=== PATIENT | male | born 1960 | race Caucasian/White ===

== ENCOUNTER 2021-02-11 08:18 | Outpatient (CLI) | payer OTHER, SELFPAY ==
[2021-02-11 08:36] LABS: Basophils Absolute Auto 0.1 K/mm3 (0.0-0.1); Basophils Percent Auto 1.2 % (0.2-1.2); Eosinophils Absolute Auto 0.2 K/mm3 (0-0.3); Eosinophils Percent Auto 2.2 % (0-4.4); Hematocrit 47.4 % (42.0-52.0); Hemoglobin 16.3 g/dL (14.0-18.0); Immature Granulocyte Absolute 0.02 K/mm3 (0.00-0.031); Immature Granulocyte Percent A 0.3 % (0-0.5); Lymphocytes Absolute Auto 1.52 K/mm3 (0.9-3.2); Lymphocytes Percent Auto 21.9 % (18.3-44.2); Mean Corpuscular HGB Conc 34.4 g/dl (32-36); Mean Corpuscular Hemoglobin 34.3 pg (26-34); Mean Corpuscular Volume 99.8 fl (80-100); Mean Platelet Volume 10.8 fl (7.4-10.4); Monocytes Absolute Auto 0.9 K/mm3 (0.1-0.6); Monocytes Percent Auto 12.2 % (2.6-8.5); Neutrophils Absolute Auto 4.3 K/mm3 (1.3-6.7); Neutrophils Percent Auto 62.2 % (45.5-73.1); Platelet Count Result 85 k/mm3 (150-375); Red Blood Count 4.75 M/mm3 (4.6-6.20); Red Cell Distribution Width 11.3 % (11.5-14.5)
[2021-02-11 09:11] LABS: Alanine Aminotransferase 42 U/L (4-50); Albumin Level 4.4 g/dL (3.5-5.1); Alkaline Phosphatase 146 U/L (38-126); Anion Gap 11 mmol/L (8-16); Aspartate Amino Transferase 83 U/L (17-59); Bilirubin,Total 3.4 mg/dL (0.2-1.3); Blood Urea Nitrogen 6 mg/dL (9-20); Calcium 9.2 mg/dL (8.4-10.2); Carbon Dioxide 30 mmol/L (22-30); Chloride 95 mmol/L (98-107); Cholesterol 169 mg/dL (0-200); Estimated Glomerular Filt Rate > 60; Glucose 302 mg/dL (65-110); HDL Direct 35 mg/dL; Potassium 4.2 mmol/L (3.4-5.0); Sodium 136 mmol/L (137-145); Triglycerides 143 mg/dL (<150)
[2021-02-11 09:23] LABS: LDL Cholesterol Direct 95 mg/dL
[2021-02-11 09:43] LABS: Prostate Specific Antigen 0.2 ng/mL (< OR = 4.0); Total Triiodothyronine (T3) 1.21 NG/ML (0.97-1.69)
[2021-02-11 10:52] LABS: Free T4 Free Thyroxine 1.31 ng/mL (0.78-2.19); Vitamin D 25 Hydroxy 29.5 ng/mL
== END 2021-02-11 08:19 | disposition home or self-care (01) ==
PROVIDERS: PCP Family Medicine; Visit Provider Nurse Practitioner
DX: R10.10 Upper abdominal pain, unspecified (principal); R19.7 Diarrhea, unspecified; R03.0 Elevated blood-pressure reading, without diagnosis of hypertension; E55.9 Vitamin D deficiency, unspecified; Z12.5 Encounter for screening for malignant neoplasm of prostate
CPT/HCPCS: 36415; 80053; 80061; 82306; 84153; 84439; 84443; 84480; 85025; G0103

== ENCOUNTER 2021-03-14 08:16 | Outpatient (CLI) | payer OTHER, SELFPAY ==
[2021-03-14 11:02] LABS: Hepatitis B Surface Antigen Negative (Negative)
[2021-03-14 11:07] LABS: HAV RESULT Negative (Negative); Hepatitis B Core IgM Result Negative (Negative)
[2021-03-14 11:19] LABS: Hepatitis C Virus Antibody Negative (Negative)
== END 2021-03-14 08:17 | disposition home or self-care (01) ==
LOC: ANHLAB 08:18
PROVIDERS: PCP Family Medicine; Visit Provider Family Medicine
DX: R94.5 Abnormal results of liver function studies (principal)
CPT/HCPCS: 36415; 80074

== ENCOUNTER 2021-03-15 15:02 | Outpatient (CLI) | payer OTHER, SELFPAY ==
--- NOTE | ~2021-03-15 | CT_ITS ---
EXAMINATION: CT abdomen pelvis wo con DATE: 03/15/2021 15:23 INDICATION: Other ascites, hernia, groin pain TECHNIQUE: Computed tomography (CT) of the abdomen and pelvis was performed without intravenous contr ast. The dose-length product (DLP) was 516.26 mGy-cm. Automated exposure control and iterative recons truction technique were employed. COMPARISON: None FINDINGS: There is mild bronchial wall thickening with patchy airspace opacity of the visualized left lower lobe. The heart size is normal. The liver surface is nodular. The enlarged spleen measures 15. 5 cm. There is trace perihepatic ascites. The pancreas, gallbladder, and adrenal glands are normal. T he kidneys are unremarkable. No pathologically enlarged abdominal or pelvic lymph nodes are identifie d. There is no free intraperitoneal gas or evidence of bowel obstruction. There is calcified atherosc lerosis of the aorta and many of the other arteries. There is mild lumbar spondylosis. There are bila teral fat-containing inguinal hernias. IMPRESSION: 1. Cirrhosis with trace perihepatic ascites. 2. Splenomegaly, likely due to portal hypertension. 3. Minimal bronchial wall thickening and patchy airspace opacity of the left lower lobe, consistent w ith infection/inflammation. Reviewed, dictated and finalized at location [facility]. IMPRESSION: 1. Cirrhosis with trace perihepatic ascites. 2. Splenomegaly, likely due to portal hypertension. 3. Minimal bronchial wall thickening and patchy airspace opacity of the left lo wer lobe, consistent with infection/inflammation.
== END 2021-03-15 15:03 | disposition home or self-care (01) ==
LOC: ANHIMG 15:03
PROVIDERS: PCP Family Medicine; Visit Provider Surgery
DX: K40.20 Bilateral inguinal hernia, without obstruction or gangrene, not specified as recurrent (principal); K74.60 Unspecified cirrhosis of liver; R18.8 Other ascites
CPT/HCPCS: 74176

== ENCOUNTER 2021-03-22 11:06 | Outpatient (CLI) | payer OTHER, SELFPAY ==
[2021-03-22 11:28] LABS: Hematocrit 46.8 % (42.0-52.0); Hemoglobin 16.5 g/dL (14.0-18.0); Immature Platelet Fraction Pct 5.5 % (0.9-11.2); Mean Corpuscular HGB Conc 35.3 g/dl (32-36); Mean Corpuscular Hemoglobin 32.7 pg (26-34); Mean Corpuscular Volume 92.7 fl (80-100); Mean Platelet Volume 10.6 fl (7.4-10.4); Platelet Count Result 133 k/mm3 (150-375); Red Blood Count 5.05 M/mm3 (4.6-6.20); Red Cell Distribution Width 11.1 % (11.5-14.5); White Blood Count 7.6 K/mm3 (4.5-10.0)
[2021-03-22 12:41] LABS: Iron 87 ug/dL (49-181)
[2021-03-22 12:51] LABS: Percent Iron Saturation 17 % (20-50)
== END 2021-03-22 11:07 | disposition home or self-care (01) ==
LOC: ANHLAB 11:07
PROVIDERS: PCP Family Medicine; Visit Provider Internal Medicine Hematology & Oncology
DX: D69.59 Other secondary thrombocytopenia (principal)
CPT/HCPCS: 36415; 82607; 82728; 83540; 83550; 85027; 85055

== ENCOUNTER → 2021-07-13 00:05 | Outpatient (CLI) | payer OTHER, SELFPAY ==
[2021-07-13 16:46] LABS: SARS-CoV-2 RNA PCR Negative
== END ==
PROVIDERS: PCP Family Medicine; Visit Provider Internal Medicine Gastroenterology
DX: Z01.812 Encounter for preprocedural laboratory examination (principal); Z20.822 Contact with and (suspected) exposure to COVID-19
CPT/HCPCS: C9803; U0003; U0005

== ENCOUNTER 2021-07-17 01:35 | Day surgery (SDC) | payer OTHER, SELFPAY ==
[2021-07-08 12:57] VITALS: BMI 25.6
[2021-07-17 11:51] VITALS: BP 145/87; PULSE 84; RESP 18; TEMP 36.4; O2SAT 99
--- NOTE | 2021-07-17 12:03 | PM.HPGS ---
History of Present Illness History of Present Illness Consent: Risks, benefits, and alternatives have been discussed and questions answered. Patient agrees to proceed with procedure. Chief complaint: neoplasm screening Narrative: Adis Morales is a 61 year old male referred for colon cancer screening. This is his 1st colonoscopy. Review of Systems Review of Systems: All systems reviewed & are unremarkable except as noted in HPI and below PMFSH Past Medical History Medical History Diabetes Hypertension Surgical History Surgical History Hx of tonsillectomy Social History Social History Smoking packs per day: 1 Smoking cigarettes per day: 20.0 Years smoked: 35 Smoking pack-years: 35.00 Smoking status: Former smoker Tobacco type: cigarettes Alcohol intake: former Substance use: never Living arrangements: with family Spiritual care concerns: No Meds Home Medications and Allergies Home Medications Medication Instructions Recorded Confirmed Type cholecalciferol (vitamin D3) 25 mcg PO DAILY 07/08/21 07/08/21 History [Vitamin D3] duloxetine 60 mg PO HS 07/08/21 07/08/21 History gabapentin 300 mg PO TID 07/08/21 07/08/21 History lisinopril 5 mg PO DAILY 07/08/21 07/08/21 History metformin 500 mg PO BID 07/08/21 07/08/21 History thiamine HCl (vitamin B1) 500 mg PO DAILY 07/08/21 07/08/21 History Allergies Allergy/AdvReac Type Severity Reaction Status Date / Time No Known Allergies Allergy Verified 07/17/21 11:50 Vital Signs Vital Signs - 24 hr 07/17/21 11:51 Temperature 36.4 C Pulse Rate 84 Respiratory Rate 18 Blood Pressure 145/87 H Pulse Oximetry 99 Exam Const: General: alert Orientation/consciousness: patient oriented x3 Resp: Auscultation: clear to auscultation bilaterally Cardio: Rhythm: regular rhythm GI: GI Palp: Yes Soft to palpation and No Tenderness to palpation present (GI) Neuro: General: patient oriented x3 Assessment and Plan Assessment and plan (1) Colon cancer screening: Code(s): Z12.11 - Encounter for screening for malignant neoplasm of colon Status: Acute Assessment and Plan: Colonoscopy with possible biopsy or polypectomy or cautery or injection of substances.
[2021-07-17 12:15] LABS: Glucose Point of Care 132 mg/dl (65-105)
--- NOTE | 2021-07-17 12:16 | WPDANESEPPF ---
Anes - Initial Pre Proc Eval Procedure: Operation Date: 07/17/21 13:00 Proposed Procedures p Screening Colonoscopy - Bennie Forman MD Date/Time: 07/17/21 12:16 Surgeon: Bennie Forman MD Pre Op Diagnosis: neoplasm screening Patient Data Age: 61 Gender: M Height: 1.68 m Weight: 68.7 kg Last Vital Signs Temp 97.6 F 07/17/21 11:51 Pulse 84 07/17/21 11:51 Resp 18 07/17/21 11:51 BP 145/87 H 07/17/21 11:51 Pulse Ox 99 07/17/21 11:51 Allergies Allergy/AdvReac Type Severity Reaction Status Date / Time No Known Allergies Allergy Verified 07/17/21 11:50 Home Medications Medication Instructions Recorded Confirmed Type cholecalciferol (vitamin D3) 25 mcg PO DAILY 07/08/21 07/08/21 History [Vitamin D3] duloxetine 60 mg PO HS 07/08/21 07/08/21 History gabapentin 300 mg PO TID 07/08/21 07/08/21 History lisinopril 5 mg PO DAILY 07/08/21 07/08/21 History metformin 500 mg PO BID 07/08/21 07/08/21 History thiamine HCl (vitamin B1) 500 mg PO DAILY 07/08/21 07/08/21 History Laboratory Tests 07/17/21 12:03 POC Capillary Glucose 132 mg/dl H mg/dl (65-105) Patient hx anesthesia problems: none Family hx anesthesia problems: none Results Review: All pre-operative results and documents have been reviewed as part of the pre-operative evaluation. [facility] Past Medical History Medical History Diabetes Hypertension Surgical History Surgical History Hx of tonsillectomy Social History Social History Smoking packs per day: 1 Smoking cigarettes per day: 20.0 Years smoked: 35 Smoking pack-years: 35.00 Smoking status: Former smoker Tobacco type: cigarettes Alcohol intake: former Substance use: never Living arrangements: with family Spiritual care concerns: No Anes - Eval Final PreProcedure Day of Procedure 07/17/21 12:16 Patient weight: normal Heart: regular rate and rhythm Lungs: clear to auscultation Airway: Mallampati scale class II Neurological: alert and oriented Last oral intake: >/= 8 hours ASA classification: III Emergent: no Anesthetic plan: proceed Anesthesia type and monitoring: general GIVS and standard monitoring Results Review: All pre-operative results and documents have been reviewed as part of the pre-operative evaluation. Informed Consent: The patient's anesthetic plan and its attendant risks and benefits were discussed with the patient/family/POA. Questions were solicited and answers provided to the satisfaction of the patient/family/POA.
[2021-07-17] MEDS: LACTATED RINGERS 1,000 ML 150 ML IV CONT (12:19)
[2021-07-17] MEDS: SIMETHICONE ORAL SUSPENSION 20 MG/0.3 ML 30 ML BOTTLE 0.6 ML IRRIGATION (13:11)
[2021-07-17 13:23] VITALS: BP 112/63; PULSE 79; RESP 14; O2SAT 98
[2021-07-17 13:33] VITALS: BP 130/75; PULSE 72; RESP 24; O2SAT 98
[2021-07-17 13:43] VITALS: BP 104/79; PULSE 72; RESP 17; O2SAT 99
== END 2021-07-17 13:49 | disposition home or self-care (01) ==
PROVIDERS: PCP Family Medicine; Visit Provider Internal Medicine Gastroenterology
PROC: 0DJD8ZZ Inspection of Lower Intestinal Tract, Via Natural or Artificial Opening Endoscopic (ICD-10-PCS; CPT 45378; principal; 2021-07-17 13:00)
DX: Z12.11 Encounter for screening for malignant neoplasm of colon (principal); D12.5 Benign neoplasm of sigmoid colon; K64.8 Other hemorrhoids; E11.9 Type 2 diabetes mellitus without complications; I10 Essential (primary) hypertension; Z87.891 Personal history of nicotine dependence
CPT/HCPCS: 45385; 82948; 88305; J2704; J7120